=== PATIENT | female | born 1985 | race American Indian/Alaskan Native ===

== ENCOUNTER 2016-10-21 10:44 | Day surgery (SDC) | payer OTHER ==
[2016-04-02 12:15] VITALS: BMI 37.1
[2016-10-21] MEDS ORDERED: Lidocaine 2% Inj (20ml) ONE (12:51)
[2016-10-21] MEDS ORDERED: Propofol 10 mg/ml Inj (20 ML) ONE (12:51)
[2016-10-21] MEDS ORDERED: Sodium Chloride 0.9% 1,000 ML IV SCH (13:15)
[2016-10-21 14:55] VITALS: BP 131/91; PULSE 76; RESP 17; TEMP 97.7; O2SAT 100
== END 2016-10-21 15:28 | disposition home or self-care (01) ==
LOC: ENDO 10:44
PROVIDERS: ATTEND Internal Medicine Gastroenterology
DX: K29.50 Unspecified chronic gastritis without bleeding (principal); K44.9 Diaphragmatic hernia without obstruction or gangrene; Z90.3 Acquired absence of stomach [part of]
CPT/HCPCS: 43239; 84703; 88305; 88342; J2704; J7040 ×2

== ENCOUNTER 2017-04-15 22:38 | Emergency (ER) | payer OTHER ==
[2017-04-15 22:39] VITALS: BMI 37.1
[2017-04-15 22:54] VITALS: PULSE 82; RESP 18; TEMP 97.9; O2SAT 99
[2017-04-15 22:55] VITALS: BP 150/98
[2017-04-15] MEDS: TDAP Vaccine 0.5 mL Syr IM ONE (23:12)
[2017-04-15 23:28] LABS: BASO # 0.02 K/mm3 (0.0-2.0); BASO % 0.3 % (0.0-3.0); EOS # 0.1 (0.0-0.7); EOS % 1.6 % (1.5-5.0); GRAN # 3.78 (1.4-6.5); GRAN % 47.6 % (50.0-68.0); HEMOGLOBIN 10.9 g/dL (12.0-16.0); LYMPH # 3.7 (1.2-3.4); LYMPH % 46.1 % (22.0-35.0); MEAN CELL VOLUME 78.7 fl (80.0-105.0); MEAN CORPUSCULAR HEMOGLOBIN 24.7 pg (25.0-35.0); MEAN CORPUSCULAR HGB CONC 31.3 g/dl (31.0-37.0); MEAN PLATELET VOLUME 10.2 fl (7.0-11.0); MONO # 0.4 (0.1-0.6); MONO % 4.4 % (1.0-6.0); RBC 4.42 10^6/uL (3.5-6.1); RED CELL DISTRIBUTION WIDTH 14.4 % (11.5-14.5); WHITE BLOOD COUNT 7.9 10^3/ul (4.5-11.0)
[2017-04-15 23:42] LABS: ALB/GLOB RATIO 1.2 (1.1-1.8); ALBUMIN 3.8 g/dL (3.0-4.8); ALT/SGPT 24 U/L (7-56); AMYLASE 74 U/L (35-125); AST/SGOT 36 U/L (14-36); BLOOD UREA NITROGEN 10 mg/dL (7-21); CALCIUM 10.3 mg/dL (8.4-10.5); GFR AFRICAN-AMERICAN > 60; GFR NON-AFRICAN AMERICAN > 60
[2017-04-15 23:54] LABS: URINE BILIRUBIN NEGATIVE (NEGATIVE); URINE BLOOD NEGATIVE (NEGATIVE); URINE GLUCOSE (UA) NEGATIVE (NEGATIVE); URINE LEUKOCYTE ESTERASE NEGATIVE Leu/uL (NEGATIVE); URINE PROTEIN NEGATIVE mg/dL (<30 mg/dL); URINE UROBILINOGEN 0.2 E.U./dL (<1 E.U./dL)
[2017-04-15 23:57] LABS: URINE APPEARANCE CLEAR (CLEAR); URINE COLOR YELLOW (YELLOW)
[2017-04-15 23:58] LABS: HCG,QUALITATIVE URINE NEGATIVE (NEGATIVE)
--- NOTE | 2017-04-15 23:58 | ED PDOC ---
Arrival/HPI - General Chief Complaint: Needle Stick Time Seen by Provider: 04/15/17 22:49 Historian: Patient - History of Present Illness Narrative History of Present Illness (Text): 04/15/17 31yr old female presents today after needle stick to left 3rd finger. pt states she was stuck with 18 guage needle to the left 3rd finger after being handed an uncapped needle. pt is Unsure of the needle was used previously. pt states she saw the source had a negative HIV test in 2014. pt denies fever/chills. denies pain. states tetanus is up to date. no other complaints. Past Medical History - Provider Review Nursing Documentation Reviewed: Yes - Travel History Have you recently traveled outside [place] w/in the past 3 mons?: No - Infectious Disease Hx of Infectious Diseases: None - Tetanus Immunization Tetanus Immunization: Up to Date - Cardiac Hx Pacemaker: No - Neurological Hx Paralysis: No - Hematological/Oncological Hx Blood Transfusions: No Hx Blood Transfusion Reaction: No - Musculoskeletal/Rheumatological Hx Musculoskeletal Disorders: No - Psychiatric Hx Emotional Abuse: No Hx Physical Abuse: No Hx Substance Use: No - Surgical History Hx Gastric Bypass Surgery: Yes (gastric sleeve) - Anesthesia Hx Anesthesia Reactions: No Hx Malignant Hyperthermia: No - Suicidal Assessment Feels Threatened In Home Enviroment: No Family/Social History - Physician Review Nursing Documentation Reviewed: Yes Family/Social History: Unknown Family HX Smoking Status: Never Smoked Hx Alcohol Use: Yes Frequency of alcohol use: Socially Hx Substance Use: No Allergies/Home Meds Allergies/Adverse Reactions: Allergies No Known Allergies Allergy (Verified 04/16/17 02:00) Home Medications: Home Meds Medication Instructions Recorded Confirmed Ondansetron HCl [Zofran] 4 mg PO DAILY PRN 10/16/16 04/16/17 Pantoprazole Sodium [Protonix] 40 mg PO DAILY PRN 10/16/16 04/16/17 Cholecalciferol [Vitamin D 1000 IU] 1 tab PO QWK 10/21/16 04/16/17 Sucralfate [Carafate Oral Susp] 10 ml PO BID PRN 10/21/16 04/16/17 Review of Systems - Review of Systems Constitutional: absent: Fatigue, Fevers Respiratory: absent: SOB, Cough Cardiovascular: absent: Chest Pain, Palpitations Gastrointestinal: absent: Abdominal Pain, Nausea, Vomiting Musculoskeletal: Arthralgias. absent: Back Pain, Neck Pain Skin: Other (finger stick). absent: Rash, Pruritis Neurological: absent: Headache, Dizziness Psychiatric: absent: Anxiety, Depression, Suicidal Ideation Physical Exam Vital Signs Reviewed: Yes Vital Signs Temp Pulse Resp BP Pulse Ox 04/15/17 22:50 97.9 F 82 18 150/98 H 99 Temperature: Afebrile Blood Pressure: Hypertensive Pulse: Regular Respiratory Rate: Normal Appearance: Positive for: Well-Appearing, Non-Toxic, Comfortable Pain Distress: None Mental Status: Positive for: Alert and Oriented X 3 - Systems Exam Head: Present: Atraumatic Mouth: Present: Moist Mucous Membranes Respiratory/Chest: Present: Clear to Auscultation Cardiovascular: Present: Regular Rate and Rhythm Upper Extremity: Present: Normal ROM, NORMAL PULSES, Neurovascularly Intact, Capillary Refill < 2s, Other (there is a small puncture noted to the volar aspect of the finger over the middle. no erythema; no edema, no ecchymosis). No: Tenderness, Swelling, Erythema, Deformity Neurological: Present: GCS=15, Speech Normal Skin: Present: Warm, Dry Psychiatric: Present: Alert, Oriented x 3 Medical Decision Making ED Course and Treatment: 04/15/17 pt with needle stick puncture at work. tetanus up to date Patient cleaned/irrigated wound well cbc; hbg;10.9 cmp; wnl ua; wnl Hepatitis panel rapid HIV: negative pt was offered HIV Prophylaxis. Patient has refused HIV prophylaxis. I discussed the risks and benefits of HIV prophylaxis with the patient in depth. I advised the patient of GI upset, possible liver failure. I discussed the benefits of taking HIV prophylaxis within 48 hours to prevent rickey HIV. Patient has verbalized that she does not want to take HIV prophylaxis at this time. i have advised the patient that she can still start HIV prophylaxis within 48hrs but earlier the better. i have advised the patient if she changes her mind she can return to ER. Patient verbalizes understanding of discharge instructions and need for immediate followup. all aspects of this case were discussed the attending of record. impression; needle stick Follow up with employee health tomorrow return if you choose to start HIV prophylaxis Keep wound clean and dry, apply bacitracin twice daily Return immediately if symptoms worsen persist or if new concerning symptoms develop - Lab Interpretations Lab Results: 04/15/17 23:10 04/15/17 23:10 Lab Results 04/15/17 23:10: HIV-1 Ab Rapid Screen Non reactive 04/15/17 23:10: Sodium 141, Potassium 4.0, Chloride 105, Carbon Dioxide 26, Anion Gap 15, BUN 10, Creatinine 0.6 L, Est GFR ( Amer) > 60, Est GFR ( Non-Af Amer) > 60, Random Glucose 95, Calcium 10.3, Total Bilirubin 0.2, AST 36 D, ALT 24, Alkaline Phosphatase 74, Total Protein 7.2, Albumin 3.8, Globulin 3.3, Albumin/Globulin Ratio 1.2, Amylase 74 04/15/17 23:10: WBC 7.9 D, RBC 4.42, Hgb 10.9 L, Hct 34.8 L, MCV 78.7 L, MCH 24.7 L, MCHC 31.3, RDW 14.4, Plt Count 325, MPV 10.2, Gran % 47.6 L, Lymph % ( Auto) 46.1 H, Nelson % (Auto) 4.4, Eos % (Auto) 1.6, Baso % (Auto) 0.3, Gran # 3.78, Lymph # (Auto) 3.7 H, Nelson # (Auto) 0.4, Eos # (Auto) 0.1, Baso # (Auto) 0.02 04/15/17 23:00: Urine Color Yellow, Urine Appearance Clear, Urine pH 6.0, Ur Specific [place] >= 1.030, Urine Protein Negative, Urine Glucose (UA) Negative, Urine Ketones Trace H, Urine Blood Negative, Urine Nitrate Negative, Urine Bilirubin Negative, Urine Urobilinogen 0.2, Ur Leukocyte Esterase Negative, Urine HCG, Qual Negative - Medication Orders Current Medication Orders: Discontinued Medications Tetanus/Reduced Diphtheria/Acell Pertussis (Boostrix Vaccine Inj) 0.5 ml IM .ONCE ONE Stop: 04/15/17 22:50 Last Admin: 04/15/17 23:12 Dose: Comments: Patient TDAP is up to date. Immunization Registry Document 04/15/17 23:12 RD (Rec: 04/15/17 23:12 RD [facility] [id number]) Immunization Registry Consent Date 02/20/17 Disposition/Present on Arrival - Present on Arrival Any Indicators Present on Arrival: No History of DVT/PE: No History of Uncontrolled Diabetes: No Urinary Catheter: No History of Decub. Ulcer: No History Surgical Site Infection Following: None - Disposition Have Diagnosis and Disposition been Completed?: Yes Diagnosis: Needlestick injury accident, Puncture wound of finger Disposition: HOME/ ROUTINE Disposition Time: 23:55 Patient Plan: Discharge Patient Problems: Current Active Problems Problem Status Onset Needlestick injury accident Acute Puncture wound of finger Acute Condition: GOOD Additional Instructions: Follow up with employee health tomorrow return if you choose to start HIV prophylaxis Keep wound clean and dry, apply bacitracin twice daily Return immediately if symptoms worsen persist or if new concerning symptoms develop [facility] Employee Regarding your Work Related Injury, you are instructed to do all of the following by next day: 1. Notify [facility] Employee Health Department of the sustained injury and arrange for any follow-up appointments if needed during the next business day. If the office is closed or no answer is received, please leave a detailed voice message. Message should include your full name, department and manager acquisition, date of injury, date of ED visit if applicable. Employee Health can be reached at [phone]. 2. If there is time lost, notify [facility] Human Resources Department of the work related injury the next business day at [phone]. Referrals: Héctor Watts MD [Staff Provider] - Follow up with primary Forms: [facility] (Ukrainian), WORK NOTE
[2017-04-16 12:49] LABS: HEPATITIS B SURFACE AG Negative (NEGATIVE)
[2017-04-16 12:55] LABS: HEPATITIS A IGM NEGATIVE (NEGATIVE); HEPATITIS B CORE AB NEGATIVE (NEGATIVE)
[2017-04-16 13:06] LABS: HEPATITIS C ANTIBODY NEGATIVE (NEGATIVE)
== END 2017-04-16 00:05 | disposition home or self-care (01) ==
LOC: ED 22:38
DX: S61.233A Puncture wound without foreign body of left middle finger without damage to nail, initial encounter (principal); W46.0XXA Contact with hypodermic needle, initial encounter; Y99.0 Civilian activity done for income or pay; Z98.84 Bariatric surgery status

== ENCOUNTER 2017-04-16 01:59 | Emergency (ER) | payer OTHER ==
[2017-04-16 01:59] VITALS: BMI 37.1
[2017-04-16 02:07] VITALS: BP 132/78; PULSE 76; RESP 18; TEMP 98; O2SAT 100
[2017-04-16] MEDS ORDERED: Emtricitabine-Tenofovir 200 mg-300 mg Tab PO STA (03:10)
--- NOTE | 2017-04-16 03:18 | ED PDOC ---
Arrival/HPI - General Chief Complaint: Abnormal Skin Integrity Time Seen by Provider: 04/16/17 02:09 Historian: Patient - History of Present Illness Narrative History of Present Illness (Text): 04/16/17 03:17 31yr old female presents today requesting HIV prophylaxis. Patient states she was seen in the emergency room about 2 hours ago and had opted against taking HIV prophylaxis. Patient states after a lot of consideration she has decided that she would like to start the HIV prophylaxis. Past Medical History - Provider Review Nursing Documentation Reviewed: Yes - Travel History Have you recently traveled outside [place] w/in the past 3 mons?: No - Infectious Disease Hx of Infectious Diseases: None - Cardiac Hx Pacemaker: No - Neurological Hx Paralysis: No - Hematological/Oncological Hx Blood Transfusions: No Hx Blood Transfusion Reaction: No - Musculoskeletal/Rheumatological Hx Musculoskeletal Disorders: No - Psychiatric Hx Emotional Abuse: No Hx Physical Abuse: No Hx Substance Use: No - Surgical History Hx Gastric Bypass Surgery: Yes (/gastric sleeve 2014) Hx Tonsillectomy: Yes - Anesthesia Hx Anesthesia Reactions: No Hx Malignant Hyperthermia: No - Suicidal Assessment Feels Threatened In Home Enviroment: No Family/Social History - Physician Review Nursing Documentation Reviewed: Yes Family/Social History: Unknown Family HX Smoking Status: Never Smoked Hx Alcohol Use: Yes Hx Substance Use: No Allergies/Home Meds Allergies/Adverse Reactions: Allergies No Known Allergies Allergy (Verified 04/16/17 02:00) Home Medications: Home Meds Medication Instructions Recorded Confirmed Ondansetron HCl [Zofran] 4 mg PO DAILY PRN 10/16/16 04/16/17 Pantoprazole Sodium [Protonix] 40 mg PO DAILY PRN 10/16/16 04/16/17 Cholecalciferol [Vitamin D 1000 IU] 1 tab PO QWK 10/21/16 04/16/17 Sucralfate [Carafate Oral Susp] 10 ml PO BID PRN 10/21/16 04/16/17 Review of Systems - Review of Systems Constitutional: absent: Fatigue, Fevers Respiratory: absent: SOB, Cough Cardiovascular: absent: Chest Pain, Palpitations Gastrointestinal: absent: Abdominal Pain, Nausea, Vomiting Genitourinary Female: absent: Dysuria Musculoskeletal: absent: Arthralgias Skin: Other (puncture wound finger) Physical Exam Vital Signs Reviewed: Yes Vital Signs Temp Pulse Resp BP Pulse Ox 04/16/17 02:01 98.0 F 76 18 132/78 100 Temperature: Afebrile Blood Pressure: Normal Pulse: Regular Respiratory Rate: Normal Appearance: Positive for: Well-Appearing, Non-Toxic, Comfortable Pain Distress: None Mental Status: Positive for: Alert and Oriented X 3 - Systems Exam Head: Present: Atraumatic Respiratory/Chest: Present: Clear to Auscultation Cardiovascular: Present: Regular Rate and Rhythm Upper Extremity: Present: Other (small puncture wound left 3rd finger; no edema , no erythema; no ecchymosis. ) Skin: Present: Warm, Dry Psychiatric: Present: Alert, Oriented x 3 Medical Decision Making ED Course and Treatment: 04/16/17 03:19 Patient presents today now requesting HIV prophylaxis after needle stick earlier today. all lab testing from the patients previous visit have been reviewed; pt with rapid HIV negative, negative , normal LFts. I have discussed the risks and benefits of HIV prophylaxis with the patient in depth. I discussed the possible side effects of the HIV medications with the patient in depth. Patient has agreed to take HIV prophylaxis. I advised the patient that she must follow-up with employee health tomorrow as well as infectious disease. I stressed the importance of using protection/safe sex . raltegravir 400mg po truvada Po given I have advised the patient that these medications are to be taken for 28 days. Patient verbalizes understanding of discharge instructions and need for immediate followup. all aspects of this case were discussed the attending of record. impression; needle stick raltegravir 400mg; twice daily x 28 days Truvada; daily x 28 days follow up with employee health tomorrow return immediately if symptoms worsen,persist or if new symptoms develop. - Medication Orders Current Medication Orders: Emtricitabine/Tenofovir (Truvada 200 Mg-300 Mg) 1 tab PO STAT STA PRN Reason: Protocol Stop: 04/16/17 03:11 Raltegravir (Isentress) 400 mg PO STAT STA PRN Reason: Protocol Stop: 04/16/17 03:11 Disposition/Present on Arrival - Present on Arrival Any Indicators Present on Arrival: No History of DVT/PE: No History of Uncontrolled Diabetes: No Urinary Catheter: No History of Decub. Ulcer: No History Surgical Site Infection Following: None - Disposition Have Diagnosis and Disposition been Completed?: Yes Diagnosis: Needlestick injury accident, Puncture wound of finger Disposition Time: 03:47 Patient Plan: Discharge Patient Problems: Current Active Problems Problem Status Onset Needlestick injury accident Acute Puncture wound of finger Acute Condition: GOOD Additional Instructions: raltegravir 400mg; twice daily x 28 days Truvada; daily x 28 days follow up with employee health tomorrow return immediately if symptoms worsen,persist or if new symptoms develop. [facility] Employee Regarding your Work Related Injury, you are instructed to do all of the following by next day: 1. Notify [facility] Employee Health Department of the sustained injury and arrange for any follow-up appointments if needed during the next business day. If the office is closed or no answer is received, please leave a detailed voice message. Message should include your full name, department and pr manager, date of injury, date of ED visit if applicable. Employee Health can be reached at [phone]. 2. If there is time lost, notify [facility] Human Resources Department of the work related injury the next business day at [phone]. Prescriptions: Emtricitabine/Tenofovir Diso [Truvada 200 MG-300 MG] 1 tab PO DAILY #28 tab Raltegravir Potassium [Isentress] 400 mg PO BID #56 tab Referrals: Héctor Watts MD [Staff Provider] - Follow up with primary
== END 2017-04-16 03:48 | disposition home or self-care (01) ==
LOC: ED 01:59
DX: S61.233D Puncture wound without foreign body of left middle finger without damage to nail, subsequent encounter (principal); W46.0XXD Contact with hypodermic needle, subsequent encounter